=== PATIENT | male | born 1945 | race Two or more races ===

== ENCOUNTER → 2017-12-25 | Outpatient (CLI) | payer OTHER ==
[~2017-12-25] MED LIST: MELOXICAM15 MG PO; TERAZOSIN HCL1 MG PO
== END | disposition home or self-care (01) ==
LOC: CDC 10:24
DX: Z01.810 Encounter for preprocedural cardiovascular examination (principal); I70.25 Atherosclerosis of native arteries of other extremities with ulceration; I45.10 Unspecified right bundle-branch block
CPT/HCPCS: 93000